=== PATIENT | female | born 1965 | race Caucasian/White ===

== ENCOUNTER → 2019-04-16 | Outpatient (CLI) | payer OTHER ==
[~2019-04-16] MED LIST: ATOR-2 PO; BUTA1CAP30 PO; CIPR500T87 PO; ESOM20CA PO; FEXO180T72 PO; PROM25TA10 PO; TAMS-11 PO; statin
== END | disposition home or self-care (01) ==
LOC: CFH 14:24
PROVIDERS: ATTEND Emergency Medicine
DX: R10.32 Left lower quadrant pain (principal)
CPT/HCPCS: 76770